=== PATIENT | male | born 1980 | race Two or more races ===

== ENCOUNTER 2020-01-07 08:34 | Day surgery (SDC) | payer BC, MEDICAID, SELFPAY ==
--- NOTE | 2020-01-05 13:57 | HO.ANESPROP2 ---
Documented by User: Carri Jones 01/05/20 13:58 HPI - Anesthesia Eval Consult details Narrative: 39yo M for Colonoscopy [facility] Past Medical History Medical History Hypogonadotropic hypogonadism Social History Social History Alcohol intake: never Smoking Status: Former smoker Advance Directives: No Advance Directives Information Provided: No Advance Directives on File: No Meds Allergies Allergy/AdvReac Type Severity Reaction Status Date / Time amlodipine Allergy Swelling Verified 01/06/20 10:00 oxycodone Allergy Hallucinati Verified 01/06/20 10:00 ons ibuprofen AdvReac Unknown Verified 01/06/20 10:00 Home Medications Medication Instructions Recorded Confirmed Type cholecalciferol (vitamin D3) 2 tab PO DAILY 01/02/20 01/02/20 History testosterone cypionate 0.75 ml IM QWEEK 01/02/20 01/02/20 History Exam Exam Date and Time: January 05, 2020 1357 Height,Weight and Vital Signs: Height 6 ft 1 in Weight 68.946 kg Assessment and Plan Assessment Anesthesia Assessment: Chart Reviewed Documented by User: Juanis Christian 01/07/20 08:56 [facility] Past Medical History Medical History Hypogonadotropic hypogonadism Social History Social History Alcohol intake: never Smoking Status: Former smoker Advance Directives: No Advance Directives Information Provided: No Advance Directives on File: No Meds Allergies Allergy/AdvReac Type Severity Reaction Status Date / Time amlodipine Allergy Swelling Verified 01/06/20 10:00 oxycodone Allergy Hallucinati Verified 01/06/20 10:00 ons ibuprofen AdvReac Unknown Verified 01/06/20 10:00 Home Medications Medication Instructions Recorded Confirmed Type cholecalciferol (vitamin D3) 2 tab PO DAILY 01/02/20 01/02/20 History testosterone cypionate 0.75 ml IM QWEEK 01/02/20 01/02/20 History Exam Airway Mallampati Class: I TM Dist: >3cm Neck ROM: Full Assessment and Plan Assessment Anesthesia Assessment: Anesthesia Plan Discussed and Chart Reviewed Final Anesthetic Review NPO: Yes ASA Class: II Final Preanesthetic Review: No Changes in Pt Med Stat, Meds/Allgs Chart Reviewed, Consent Obtained/Reviewed and Anes Risks/Benef Reviewed Patient Risk: Low Procedure Risk: Low Assessment/Block/Sedation in SS: Assess/Block/Sedation-SS Anesthetic Plan Anesthetic Plan: MAC: Disposition: Standard PACU
[2020-01-07 08:52] VITALS: BP 117/60; PULSE 58; RESP 16; TEMP 36.8; O2SAT 98
--- NOTE | 2020-01-07 08:54 | PC.NURSE ---
patients heart rate dropped to 49 anesthesia aware. asymptomatic. patients states that is his baseline.
--- NOTE | 2020-01-07 09:20 | MHC.SHP ---
Pre-Procedural Eval Section B Chief Complaint: Family Hx of Colon Cancer Details of Present Illness: mother had rectal cancer Relevant Family History (Specify if Yes): Yes Relevant Social History: None Present Medications: see Short Stay Collaborative assessment Medical History: Significant History (hypogonadism) History of Previous Operations: No relevant previous surgery Allergies: Allergies Allergy/AdvReac Type Severity Reaction Status Date / Time No Known Allergies Allergy Verified 01/07/20 09:18 Review of Systems Sugical H&P ROS: Negative: Constitution, Cardiovascular, Respiratory, Neurological, Psychiatric, Hem-Onc, Allergic/Immunologic, Gastrointestinal, Genitourinary, Musculoskeletal, Integumentary, Endocrine and Eyes/Ears/Nose/Throat Exam Surgical H&P Exam: Normal: HEENT, Normal: Heart, Normal: Lungs, Normal: Extremities, Normal: Abdomen, Normal: Skin and Normal: Neurological Plan Diagnosis/Plan: Unchanged Patient has been examined and remains a candidate for the planned procedure
[2020-01-07] MEDS: Lactated Ringers 1,000 ML 100 ML IVCONT (09:21)
--- NOTE | 2020-01-07 09:21 | PM.OP ---
Brief Operative Note Date of procedure: 01/07/20 Pre-op diagnosis: colon cancer screening, high risk, mother had colon cancer in her 30's Post-op diagnosis: same Procedure: see op note Surgeon: Gricel Mercer MD Anesthesia: MAC Estimated blood loss (mL): 0 Condition: stable Disposition: PACU
--- NOTE | 2020-01-07 09:21 | W.PM.OPN ---
Operative Note Operative Note Narrative: Operative Information Procedure Description: Colonoscopy COLONOSCOPY Instrument: Olympus variable stiffness pediatric scope 190L Colonoscopy Monitoring: Vital signs and clinical assessment, continuous EKG monitoring, Pulse oximetry, Carbon Dioxide monitoring and blood pressure monitoring were done throughout the procedure. Colon withdrawal time was 6 minutes. Procedure: The patient was placed in the left lateral decubitis position and pre-procedure medications were administered. After a digital rectal examination of the ano-rectum, the video colonoscope was inserted into the rectum and advanced through the colon to the cecum/TI. The colonoscope was slowly withdrawn in a retrograde panoramic fashion and the colon mucosa was carefully examined including a retroflexed view of the rectum. Findings and interventions are described below. Procedure Difficulty:easy Findings: Terminal Ileum-normal Cecum:normal Ascending Colon: normal Transverse Colon -normal Descending Colon:normal Sigmoid Colon: normal Rectum: Retroflexion with small internal hemorrhoids, grade I Anorectum - normal Colon preparation: Stickney Bowel Preparation Scale Right colon; 3 Transverse colon: 3 Left colon; 3 (0 = Unprepared colon segment with mucosa not seen due to solid stool that cannot be cleared. 1 = Portion of mucosa of the colon segment seen, but other areas of the colon segment not well seen due to staining, residual stool and/or opaque liquid. 2 = Minor amount of residual staining, small fragments of stool and/or opaque liquid, but mucosa of colon segment seen well. 3 = Entire mucosa of colon segment seen well with no residual staining, small fragments of stool or opaque liquid) Impression and Post Procedure Diagnosis: small internal hemorrhoids Plan: High fiber diet leaflet Avoid straining at stool, epsom salts and sitz bath prn, anusol supps or cream prn Repeat Colonoscopy in 5 years due to FH of CRC or earlier if clinically indicated Above findings were reviewed with the patient and relevant handouts were provided if indicated.
[2020-01-07 09:55] VITALS: BP 86/43; PULSE 72; RESP 16; TEMP 36.3; O2SAT 99
[2020-01-07 10:10] VITALS: BP 89/49; PULSE 70; RESP 16; O2SAT 98
[2020-01-07 10:25] VITALS: BP 116/57; PULSE 66; RESP 16; TEMP 36.3; O2SAT 99
--- NOTE | 2020-01-07 10:48 | HO.POSTANES ---
Post Anesthesia Evaluation Post Anesthesia Evaluation Vital Signs: Vital Signs Temp Pulse Resp BP Pulse Ox 01/07/20 10:25 97.3 F 66 16 116/57 L 99 01/07/20 10:10 70 16 89/49 L 98 01/07/20 09:55 97.3 F 72 16 86/43 L 99 01/07/20 08:52 98.3 F 58 16 117/60 98 Anesthesia: General (tiva) Mental Status: Awake Pain Control: Satisfactory Nausea/Vomiting: None Hydration: Adequate Anesthesia-Related Issues: No Anes. Related Issues
== END 2020-01-07 11:04 | disposition home or self-care (01) ==
PROVIDERS: PCP Internal Medicine; Visit Provider Internal Medicine Gastroenterology
PROC: 0DJD8ZZ Inspection of Lower Intestinal Tract, Via Natural or Artificial Opening Endoscopic (ICD-10-PCS; CPT 45378; principal; 2020-01-07 09:30)
DX: Z12.11 Encounter for screening for malignant neoplasm of colon (principal); Z80.0 Family history of malignant neoplasm of digestive organs; K64.0 First degree hemorrhoids; I10 Essential (primary) hypertension; E23.0 Hypopituitarism; E55.9 Vitamin D deficiency, unspecified; Z79.899 Other long term (current) drug therapy; Z87.891 Personal history of nicotine dependence; Z88.8 Allergy status to other drugs, medicaments and biological substances
CPT/HCPCS: 45378

== ENCOUNTER → 2020-01-14 15:02 | Outpatient (BNVA) | payer MEDICAID, BC, SELFPAY | PROVIDERS: PCP Internal Medicine; Referring Provider Internal Medicine; Visit Provider Nurse Practitioner | DX: Z76.89 Persons encountering health services in other specified circumstances (principal) ==

== ENCOUNTER → 2020-01-15 10:07 | Outpatient (BNVA) | payer MEDICAID, BC, SELFPAY | PROVIDERS: PCP Internal Medicine; Referring Provider Internal Medicine; Visit Provider Internal Medicine | DX: Z13.89 Encounter for screening for other disorder (principal) ==

== ENCOUNTER → 2020-05-06 08:55 | Outpatient (BNVA) | payer BC, MEDICAID, SELFPAY | PROVIDERS: PCP Internal Medicine; Visit Provider Internal Medicine ==

== ENCOUNTER → 2020-11-08 08:47 | Outpatient (BNVA) | payer BC, MEDICAID, SELFPAY | PROVIDERS: PCP Internal Medicine; Visit Provider Internal Medicine ==

== ENCOUNTER 2021-02-15 13:27 | Outpatient (REF) | payer BC, MEDICAID, SELFPAY ==
--- NOTE | ~2021-02-15 | US_ITS ---
EXAMINATION: US SOFT TISSUE NECK CLINICAL INFORMATION: Left supraclavicular lymph node COMPARISON: None TECHNIQUE: Ultrasound of the neck soft tissues is performed with high- frequency overton-scale imaging and color Doppler. FINDINGS: LEFT NECK SOFT TISSUES: Single architecturally normal note is present. The node demonstrates normal fatty hilus, normal cortical thickness, and no cystic change or calcification. No abnormal color flow. The lymph node measures 0.8 x 0.5 x 0.3 cm. US/US soft tiss head and/or neck IMPRESSION: Small left supraclavicular lymph node.
== END 2021-02-15 13:28 | disposition home or self-care (01) ==
LOC: HO.US 13:27
PROVIDERS: PCP Internal Medicine; Visit Provider Internal Medicine
DX: L98.9 Disorder of the skin and subcutaneous tissue, unspecified (principal)
CPT/HCPCS: 76536

== ENCOUNTER 2021-10-28 07:46 | Outpatient (REF) | payer BC, MEDICAID, SELFPAY ==
[2021-10-28 11:37] LABS: Hematocrit 45.3 % (42.0-52.0)
[2021-10-28 12:05] LABS: Prostate Specific Antigen 0.32 ng/mL (<0.05-4.0)
[2021-11-05 13:11] LABS: Testosterone, Total 877 ng/dL (250-1100)
== END 2021-10-28 07:47 | disposition home or self-care (01) ==
LOC: HO.HMGCLDS 07:46
PROVIDERS: Visit Provider Urology
DX: Z12.5 Encounter for screening for malignant neoplasm of prostate (principal); E23.0 Hypopituitarism
CPT/HCPCS: 36415; 84153; 84403; 85014

== ENCOUNTER 2022-05-08 08:28 | Outpatient (REF) | payer BC, MEDICAID, SELFPAY ==
[2022-05-08 11:50] LABS: Hematocrit 50.3 % (42.0-52.0); Hemoglobin 16.5 g/dl (14.0-18.0); Mean Corpuscular HGB Conc 32.8 g/dl (31.0-36.0); Mean Corpuscular Hemoglobin 29.5 pg (27.0-33.0); Mean Corpuscular Volume 89.8 fL (80.0-98.0); Mean Platelet Volume 11.1 fL (9.4-12.4); Platelet Count 230 X10*3/uL (160-400); Red Cell Distribution Width 12.7 % (11.0-16.0); White Blood Count 4.4 X10*3/uL (4.8-10.8)
[2022-05-08 12:46] LABS: Prostate Specific Antigen 0.28 ng/mL (<0.05-4.0)
[2022-05-14 13:09] LABS: Testosterone, Total 183 ng/dL (250-1100)
== END 2022-05-08 08:29 | disposition home or self-care (01) ==
LOC: HO.HMGCLDS 08:28
PROVIDERS: PCP Internal Medicine; Visit Provider Urology
DX: E23.0 Hypopituitarism (principal); E29.1 Testicular hypofunction; Z12.5 Encounter for screening for malignant neoplasm of prostate
CPT/HCPCS: 36415; 84153; 84403; 85027

== ENCOUNTER → 2022-05-23 15:09 | Outpatient (BNVA) | payer BC, MEDICAID, SELFPAY | PROVIDERS: PCP Internal Medicine; Visit Provider Urology ==

== ENCOUNTER 2022-08-15 20:13 | Emergency (ER) | payer BC, MEDICAID, SELFPAY ==
--- NOTE | ~2022-08-15 | XR_ITS ---
EXAMINATION: XR HAND, RIGHT CLINICAL INFORMATION: Injury. Pain. COMPARISON: None available. TECHNIQUE: PA, lateral, and oblique views of the right hand. FINDINGS: There is a fracture of the distal shaft of the fifth metacarpal bone. There is radial and volar angulation of the fifth metacarpal head with respect to the more proximal shaft. No other fracture. Joint spaces are normal. There is soft tissue swelling adjacent to the fracture. XR/XR hand RT 2V IMPRESSION: Right fifth metacarpal fracture.
[2022-08-15 20:26] VITALS: BP 136/71; PULSE 69; RESP 18; TEMP 36.6; O2SAT 97; BMI 22.4
--- NOTE | 2022-08-15 20:38 | ED_ITS ---
HPI - Extremity Problem General Chief complaint: Extremity Injury, Upper Stated complaint: R hand injury Time Seen by Provider: 08/15/22 22:20 Source: patient Mode of arrival: ambulatory Limitations: no limitations History of Present Illness HPI Narrative: Patient is a 42-year-old male presents emergency department for evaluation of right hand injury. Reports 2 or 3 days ago he was playing basketball when he jammed his finger into the wall. He had initially a large amount of swelling to the right hand at the ulnar aspect. This has since decreased but is still painful. He decided to seek evaluation today as swelling continued. Denies any numbness or tingling to the hand. Is able to flex and extend all digits of the right hand. Related Data Previous Rx's Medication Instructions Recorded cholecalciferol (vitamin D3) 25 50 mcg PO DAILY 30 days #60 tabs 03/09/20 mcg (1,000 unit) tablet testosterone cypionate 200 mg/mL 100 mg (0.5 mL) IM QWEEK 28 days 05/12/22 intramuscular oil #4 mL Allergies Allergy/AdvReac Type Severity Reaction Status Date / Time No Known Allergies Allergy Verified 05/23/22 15:20 Review of Systems Review of Systems: Yes all other systems are reviewed and are negative PMFSH Past Medical History Attestation statement: The following information was validated with the patient. 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 No acute distress.?Normal affect. Neck: Normal inspection.? Neck supple.?? CVS: Heart sounds normal. Normal heart rate and rhythm.? Pulses normal.?? Respiratory: No respiratory distress.? Lung sounds clear to auscultation bilaterally?? Skin: Skin warm and dry.? Normal skin color.? Extremities: 2+ radial and ulnar +bilaterally. You localized swelling to the distal 5th metacarpal. Neuro: Moves all extremities spontaneously. Sensation intact bilaterally. No focal neuro deficits. Ambulates with normal steady gait. Course Course Course Narrative: 42-year-old male presents for evaluation of right hand pain after a basketball injury when he jammed his finger 2 days ago. Plan for x-ray of the right hand Medical Decision Making Medical Decision Making MDM Narrative: Patient is a 42-year-old male presents emergency department for evaluation of traumatic right hand pain. XR imaging consistent with distal right 5th metacarpal fracture. Extremity is neurovascularly intact distally. Reviewed these results with patient. Patient placed in an ulnar gutter splint, remained neurovascularly intact distally after placement. Discussed pain management including alternation between acetaminophen ibuprofen, patient declines any stronger pain medication at this time. Advised outpatient follow-up with Orthopedics, provided with our contact information. Reviewed worrisome signs and symptoms that would warrant re-evaluation in the emergency department. All questions answered. Differential Diagnosis Differential Diagnoses: The differential diagnosis associated with the presentation includes (Fracture, dislocation, contusion) Independent Interpretation I performed an independent interpretation of an: Plain X-Ray (Have personally interpreted x-ray imaging and agree with radiologist impression) Radiology Impression Discussion of test interpretation with radiology: I have reviewed the radiologist's reading. Radiologist Impression: XR/XR hand RT 2V IMPRESSION: Right fifth metacarpal fracture. Prescription Management I considered prescription management with: Pain Medication Discharge Plan Discharge Clinical Impression: Closed fracture of 5th metacarpal Qualifiers: Encounter type: initial encounter Laterality: right Patient Disposition: Home, Self-Care Instructions: Hand Fracture (ED) Additional Instructions: As discussed, you have a fracture of the 5th metacarpal in your right hand. The splint was positioned, this should remain in place until evaluated by orthop edics. This cannot get wet. You may alternate between Tylenol and ibuprofen as needed for pain. If you develop severe worsening pain, numbness or tingling to the hand/fingers, inability to move the fingers he should have this re- evaluated. Prescriptions: No Action cholecalciferol (vitamin D3) 25 mcg (1,000 unit) tablet 50 mcg PO DAILY 30 Days Qty: 60 11RF testosterone cypionate 200 mg/mL oil 100 mg IM QWEEK 28 Days Qty: 4 5RF Referrals: Wanda Chau PA-C [Physician Streaming Media Specialist] - Brooke Leavitt MD [Primary Care Provider] - Interventions: ED Discharge Assessment Last Done: 08/16/22 00:38 Discharge Date/Time: 08/16/22 00:38
--- NOTE | 2022-08-16 00:32 | MHC.EDTECH ---
This tech placed an Ulna Gutter splint to right wrist, patient tolerated procedure well. Placement checked by Josh SAN at this time,Pt ready for discharge. RN aware
== END 2022-08-16 00:38 | disposition home or self-care (01) ==
PROVIDERS: Emergency Provider Emergency Medicine; PCP Internal Medicine
DX: S62.306A Unspecified fracture of fifth metacarpal bone, right hand, initial encounter for closed fracture (principal); Y93.67 Activity, basketball; Y93.9 Activity, unspecified; Y92.9 Unspecified place or not applicable; Y99.9 Unspecified external cause status
CPT/HCPCS: 29130; 73120; 99282; 99284

== ENCOUNTER 2022-08-23 11:08 | Outpatient (REF) | payer BC, MEDICAID, SELFPAY ==
--- NOTE | ~2022-08-23 | XR_ITS ---
EXAMINATION: XR HAND, RIGHT CLINICAL INFORMATION: Right hand pain. COMPARISON: 08/15/2022. TECHNIQUE: PA, lateral, and oblique views of the right hand. FINDINGS: There is no change in alignment of nondisplaced angulated fracture of the distal 5th metacarpal. Fracture line is evident but there does appear to be some degree of bony union present. There is some periosteal new bone formation. There remains some soft tissue swelling. No dislocation is evident. XR/XR hand RT min 3V IMPRESSION: No change in alignment of healing right 5th metacarpal head fracture.
== END 2022-08-23 11:09 | disposition home or self-care (01) ==
LOC: HO.HOSX 11:08
PROVIDERS: PCP Internal Medicine; Visit Provider Orthopaedic Surgery
DX: S62.306A Unspecified fracture of fifth metacarpal bone, right hand, initial encounter for closed fracture (principal)
CPT/HCPCS: 26600; 73130

== ENCOUNTER 2022-09-08 15:39 | Outpatient (REF) | payer BC, MEDICAID, SELFPAY | END 2022-09-08 15:40 | disposition home or self-care (01) | LOC: HO.HOSX 15:39 | PROVIDERS: Visit Provider Orthopaedic Surgery | DX: Z13.89 Encounter for screening for other disorder (principal) ==

== ENCOUNTER 2022-11-15 06:44 | Outpatient (REF) | payer BC, MEDICAID, SELFPAY ==
[2022-11-15 07:53] LABS: Hemoglobin 16.7 g/dl (14.0-18.0); Mean Corpuscular HGB Conc 33.4 g/dl (31.0-36.0); Mean Corpuscular Hemoglobin 29.8 pg (27.0-33.0); Mean Corpuscular Volume 89.3 fL (80.0-98.0); Mean Platelet Volume 11.2 fL (9.4-12.4); Platelet Count 182 X10*3/uL (160-400); Red Cell Distribution Width 11.9 % (11.0-16.0); White Blood Count 4.7 X10*3/uL (4.8-10.8)
[2022-11-19 14:48] LABS: Testosterone, Total 132 ng/dL (250-1100)
== END 2022-11-15 06:45 | disposition home or self-care (01) ==
LOC: HO.LAB 06:44
PROVIDERS: Visit Provider Urology
DX: Z12.5 Encounter for screening for malignant neoplasm of prostate (principal); E23.0 Hypopituitarism
CPT/HCPCS: 36415; 84153; 84403; 85027

== ENCOUNTER 2022-11-28 14:14 | Outpatient (AMB) | payer BC, MEDICAID, SELFPAY ==
--- NOTE | 2022-11-28 14:20 | MHC.OFFVIS ---
Intake Intake Visit Reasons: 6M CBC/PSA/Testosterone(set) Intake Note: Patient is Present for Follow Up Labs Urology Medication: Testosterone Antibiotic Allergies: None Blood Thinners: None Pharmacy: [facility] Allergies No Known Allergies Allergy (Verified 08/23/22 11:40) HPI HPI Comments History of Present Illness Details Marvin is a pleasant male. He is a patient of Dr. Leavitt. 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 history of probe hormone an anabolic steroid use Off supplementation in 2017 was found to have hypogonadotropic hypogonadism Previously on testosterone Currently uses testosterone supinate which he self administers Gradually reducing dosage to 100 mg weekly subcutaneous Injection - Sunday Laboratory - Sunday Labs: 11/17 877 0.3, 05/18 T 183 50 0.2 (Sun), 11/18 132 (Sun) [facility] Medical History Vitamin D deficiency HTN (hypertension) Hypogonadotropic hypogonadism Surgical History Hx of colonoscopy No pertinent past surgical history Family History Father Heart disease Mother Cancer Social History Household Members: Spouse and Children Alcohol intake: current Alcohol intake frequency: holidays/special occasions only Patient Tobacco Use Status: Never used Tobacco Current occupational status: employed 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 Review of Systems Const Denies chills and Denies fever(s) Card Reports no additional complaints and Denies syncope Resp Denies cough GI Denies abdominal pain and Denies heartburn Reports as per HPI and Denies change in libido Neuro Denies syncope Psych Denies change in libido Endo Denies change in libido Physical Exam Const General: cooperative, healthy appearing, comfortable and no acute distress Orientation/consciousness: patient oriented x3 HEENT Face and sinus: Yes normal facial exam Mouth: moist mucous membranes Neck Neck: Yes normal visual inspection, Yes full ROM and Yes trachea midline Chest Chest palpation & inspection: normal inspection of the chest Resp Effort & Inspection: normal respiratory effort, able to speak in complete sentences and no respiratory distress GI Inspection: Yes normal to inspection Back/Spine/Pelvis Cervical Spine: normal cervical lordosis Thoracic/Lumbar Spine: thoracic and lumbar spine normal to inspection Skin General skin exam: no rashes or lesions noted Neuro General: patient oriented x3, gait normal, tone normal and moves all extremities Extrem General: Yes normal to inspection and Yes capillary refill normal Assessment & Plan Assessment & Plan (1) Erectile dysfunction due to arterial insufficiency: Code(s): N52.01 - Erectile dysfunction due to arterial insufficiency Plan Prescriptions refilled Orders: Orders Testosterone, Total 6 Months 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 No major barriers to patient understanding were identified. An opportunity to ask questions regarding the treatment plan was provided. All questions were answered. The patient expressed understanding and agreement with the above treatment plan. The patient is aware they should contact our office by phone for worsening of their current condition or the appearance of new urologic symptoms. Compliance is encouraged with any medications and followup testing that is ordered. It is a privilege to participate in the urologic care of your patient. If you have any questions or concerns regarding treatment for the above conditions, or other urologic issues, please do not hesitate to contact me. The office telephone contact is [phone]. This note is constructed using voice recognition software. While every effort has been made to ensure accuracy concrete layer errors may have been included. Yours sincerely, Dr Marciano Soliman MD, [facility] - Urology Providers of Expert, Compassionate Care for the Genitourinary System Coding Level of Care Code Est Pt Level 3 (41525) Diagnoses Erectile dysfunction due to arterial insufficiency N52.01
== END 2022-11-28 14:46 | disposition home or self-care (01) ==
PROVIDERS: PCP Internal Medicine; Visit Provider Urology
DX: N52.01 Erectile dysfunction due to arterial insufficiency (principal)
CPT/HCPCS: 99213

== ENCOUNTER → 2022-11-28 14:14 | Outpatient (BNVA) | payer BC, MEDICAID, SELFPAY | PROVIDERS: Visit Provider Urology ==

== ENCOUNTER 2023-05-18 08:58 | Outpatient (REF) | payer BC, MEDICAID, SELFPAY ==
[2023-05-18 10:36] LABS: Hematocrit 52.4 % (42.0-52.0); Hemoglobin 17.3 g/dl (14.0-18.0); Mean Corpuscular Hemoglobin 29.9 pg (27.0-33.0); Mean Corpuscular Volume 90.5 fL (80.0-98.0); Mean Platelet Volume 10.3 fL (9.4-12.4); Platelet Count 255 X10*3/uL (160-400); Red Blood Count 5.79 X10*6/uL (4.60-5.80); White Blood Count 5.1 X10*3/uL (4.8-10.8)
[2023-05-18 11:15] LABS: Prostate Specific Antigen 0.48 ng/mL (<0.05-4.0)
[2023-05-24 11:43] LABS: Testosterone, Total 739 ng/dL (250-1100)
== END 2023-05-18 08:59 | disposition home or self-care (01) ==
LOC: HO.HMGCLDS 08:58
PROVIDERS: PCP Registered Nurse; Visit Provider Urology
DX: Z12.5 Encounter for screening for malignant neoplasm of prostate (principal); E23.0 Hypopituitarism
CPT/HCPCS: 36415; 84153; 84403; 85027

== ENCOUNTER 2023-05-30 13:40 | Outpatient (AMB) | payer BC, MEDICAID, SELFPAY ==
--- NOTE | 2023-05-30 13:40 | A.OFFVIS_ITS ---
Intake Intake Visit Reasons: 6M PSA/Testo(Pending)Confirmed Intake Note: Patient presents today for a telehealth follow up on PSA/Testo Meds- Tadalafil, Testosterone Cypionate Allergies to Antibiotic- No Known Allergies Blood Thinner- None Ship'S Surveyor Required: No Accompanied by: Self / Same As Patient Allergies No Known Allergies Allergy (Verified 05/30/23 13:42) Medication List - Last Reconciled 05/30/23 by Marciano Soliman MD cholecalciferol (vitamin D3) 50 mcg (2 x 25 mcg (1,000 unit)) PO DAILY 30 days tadalafil 10 mg PO ONCE PRN 30 days testosterone cypionate 100 mg (0.5 mL) IM QWEEK 28 days HPI HPI Comments History of Present Illness Details Marvin is a pleasant male. He is a patient of Dr. Leavitt. 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 steroid use Off supplementation in 2017 was found to have hypogonadotropic hypogonadism Previously on testosterone Currently uses testosterone supinate which he self administers Gradually reducing dosage to 100 mg weekly subcutaneous Injection - Sunday Laboratory - Sunday Labs: 11/17 877 0.3, 05/18 T 183 50 0.2 (Sun), 11/18 132 (Sun), 05/19 T 740 0.4 PFSH Medical History Vitamin D deficiency HTN (hypertension) Hypogonadotropic hypogonadism Surgical History Hx of colonoscopy No pertinent past surgical history Family History Father Heart disease Mother Cancer Social History Household Members: Spouse and Children Alcohol intake: current Alcohol intake frequency: holidays/special occasions only Patient Tobacco Use Status: Never used Tobacco Current occupational status: employed 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 Review of Systems Const All systems reviewed & are unremarkable except as noted in HPI and below Reports no additional complaints Resp Reports no additional complaints GI Reports no additional complaints Reports as per HPI Musc Reports no additional complaints Physical Exam Telemedicine evaluation Appropriate responses Regular breathing rate and rhythm HEENT Head: Yes normal to inspection Ears: hearing grossly normal bilaterally Eyes General: appearance normal, both eyes and all related structures Neck Neck: Yes normal visual inspection Chest Chest palpation & inspection: normal inspection of the chest Resp Effort & Inspection: normal respiratory effort and able to speak in complete sentences Assessment & Plan Assessment & Plan (1) Hypogonadotropic hypogonadism: Code(s): 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 No major barriers to patient understanding were identified. An opportunity to ask questions regarding the treatment plan was provided. All questions were answered. The patient expressed understanding and agreement with the above treatment plan. The patient is aware they should contact our office by phone for worsening of their current condition or the appearance of new urologic symptoms. Compliance is encouraged with any medications and followup testing that is ordered. It is a privilege to participate in the urologic care of your patient. If you have any questions or concerns regarding treatment for the above conditions, or other urologic issues, please do not hesitate to contact me. The office telephone contact is [phone]. This note is constructed using voice recognition software. While every effort has been made to ensure accuracy dot compliance coordinator errors may have been included. Yours sincerely, Dr Marciano Soliman MD, [facility] - Urology Providers of Expert, Compassionate Care for the Genitourinary System Telehealth Telehealth Location of provider rendering services: practice address Location of patient: address on file Patient Identification confirmed using: Name, : Yes Telehealth method: video Patient verbally consented to treatment: Yes Patient verbally consented to billing insurance company: Yes Patient informed of any privacy concerns related to visit: Yes Coding Level of Care Code Tele Est Pt Level 4 (54591) Diagnoses Hypogonadotropic hypogonadism E23.0 Erectile dysfunction due to arterial insufficiency N52.01
== END 2023-05-30 15:56 | disposition home or self-care (01) ==
LOC: HO.HUSH 13:40
PROVIDERS: PCP Registered Nurse; Visit Provider Urology
DX: E23.0 Hypopituitarism (principal); N52.01 Erectile dysfunction due to arterial insufficiency
CPT/HCPCS: 99213

== ENCOUNTER → 2023-05-30 13:40 | Outpatient (BNVA) | payer BC, MEDICAID, SELFPAY | PROVIDERS: PCP Registered Nurse; Visit Provider Urology ==

== ENCOUNTER 2023-11-13 10:44 | Outpatient (REF) | payer OTHER, MEDICAID, SELFPAY ==
[2023-11-13 11:23] LABS: Hematocrit 47.8 % (42.0-52.0); Hemoglobin 16.3 g/dl (14.0-18.0); Mean Corpuscular HGB Conc 34.1 g/dl (31.0-36.0); Mean Corpuscular Hemoglobin 31.3 pg (27.0-33.0); Mean Corpuscular Volume 91.7 fL (80.0-98.0); Mean Platelet Volume 10.3 fL (9.4-12.4); Platelet Count 225 X10*3/uL (160-400); Red Blood Count 5.21 X10*6/uL (4.60-5.80); Red Cell Distribution Width 12.2 % (11.0-16.0); White Blood Count 4.3 X10*3/uL (4.8-10.8)
[2023-11-13 12:04] LABS: Prostate Specific Antigen 0.44 ng/mL (<0.05-4.0)
[2023-11-17 15:54] LABS: Testosterone, Total 491 ng/dL (250-1100)
== END 2023-11-13 10:45 | disposition home or self-care (01) ==
LOC: HO.LAB 10:44
PROVIDERS: PCP Registered Nurse; Visit Provider Urology
DX: E23.0 Hypopituitarism (principal); Z12.5 Encounter for screening for malignant neoplasm of prostate
CPT/HCPCS: 36415; 84153; 84403; 85027

== ENCOUNTER 2024-01-09 10:38 | Outpatient (AMB) | payer OTHER, MEDICAID, SELFPAY ==
--- NOTE | 2024-01-09 10:50 | MHC.OFFVIS ---
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 He is a patient of Dr. Leavitt. 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 Previously on testosterone Currently uses testosterone supinate which he self administers Gradually reducing dosage to 100 mg weekly subcutaneous Injection - Sunday Laboratory - Sunday Labs: 11/17 877 0.3, 05/18 T 183 50 0.2 (Sun), 11/18 132 (Sun), 05/19 T 740 0.4, 11/19 T 491 0.44 PFSH Medical History Vitamin D deficiency HTN (hypertension) Hypogonadotropic hypogonadism Surgical History Hx of colonoscopy No pertinent past surgical history Family History Father Heart disease Mother Cancer Social History Household Members: Spouse and Children Alcohol intake: current Alcohol intake frequency: holidays/special occasions only Patient Tobacco Use Status: Never used Tobacco Current occupational status: employed 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 Review of Systems Const Denies chills and Denies fever(s) Card Reports no additional complaints and Denies syncope Resp Denies cough GI Denies abdominal pain and Denies heartburn Reports as per HPI and Denies change in libido Neuro Denies syncope Psych Denies change in libido Endo Denies change in libido Physical Exam Const General: cooperative, healthy appearing, comfortable and no acute distress Orientation/consciousness: patient oriented x3 HEENT Face and sinus: Yes normal facial exam Mouth: moist mucous membranes Neck Neck: Yes normal visual inspection, Yes full ROM and Yes trachea midline Chest Chest palpation & inspection: normal inspection of the chest Resp Effort & Inspection: normal respiratory effort, able to speak in complete sentences and no respiratory distress GI Inspection: Yes normal to inspection Back/Spine/Pelvis Cervical Spine: normal cervical lordosis Thoracic/Lumbar Spine: thoracic and lumbar spine normal to inspection Skin General skin exam: no rashes or lesions noted Neuro General: patient oriented x3, gait normal, tone normal and moves all extremities Extrem General: Yes normal to inspection and Yes capillary refill normal Assessment & Plan Assessment & Plan (1) Erectile dysfunction due to arterial insufficiency: Code(s): N52.01 - Erectile dysfunction due to arterial insufficiency Category: Medical (2) Hypogonadotropic hypogonadism: Code(s): E23.0 - Hypopituitarism Category: Medical Plan Six-month follow-up lab work tele Patient Instructions: Imaging studies, laboratory and physical exam results were discussed and reviewed in detail. No major barriers to patient understanding were identified. An opportunity to ask questions regarding the treatment plan was provided. All questions were answered. The patient expressed understanding and agreement with the above treatment plan. The patient is aware they should contact our office by phone for worsening of their current condition or the appearance of new urologic symptoms. Compliance is encouraged with any medications and followup testing that is ordered. It is a privilege to participate in the urologic care of your patient. If you have any questions or concerns regarding treatment for the above conditions, or other urologic issues, please do not hesitate to contact me. The office telephone contact is [phone]. This note is constructed using voice recognition software. While every effort has been made to ensure accuracy family caseworker errors may have been included. Yours sincerely, Dr Marciano Soliman MD, MICKEY [facility] - Urology Providers of Expert, Compassionate Care for the Genitourinary System Coding Level of Care Code Est Pt Level 3 (04315) Diagnoses Erectile dysfunction due to arterial insufficiency N52.01 Hypogonadotropic hypogonadism E23.0
== END 2024-01-09 11:27 | disposition home or self-care (01) ==
PROVIDERS: PCP Registered Nurse; Visit Provider Urology
DX: N52.01 Erectile dysfunction due to arterial insufficiency (principal); E23.0 Hypopituitarism
CPT/HCPCS: 99213

== ENCOUNTER → 2024-01-09 10:38 | Outpatient (BNVA) | payer OTHER, MEDICAID, SELFPAY | PROVIDERS: PCP Registered Nurse; Visit Provider Urology ==

== ENCOUNTER 2024-07-02 09:17 | Outpatient (REF) | payer OTHER, MEDICAID, SELFPAY ==
--- OUTSIDE RECORDS SUMMARY | 2024-07-02 09:56 | XMS_ITS | Clinical Summary ---
Author Organization [employer] Address [address] [place] [address] Care Team Providers Care Knitter Operator Name Role Phone Ruthy Vickers CABIN MAN Primary Care Provider [phone] Allergies No known active allergies Medications tadalafil (Cialis) 10 MG tablet TAKE 1 TABLET BY MOUTH ONCE NEEDED FOR SEXUAL ACTIVITY 05/22/19 24 Active testosterone cypionate (Depo-Testoste shena) 200 MG/ML injection INJECT 0.5 ML (100 MG) INTRAMUSCULARLY EVERY WEEK Active acetaminophen (Tylenol 8 Hour) 650 MG ER tablet Take 1 tablet (650 mg) by mouth every 8 (eight) hours if needed for mild pain. Do not crush, chew, or split. 30 tablet 06/06/19 25 Active ibuprofen 600 MG tablet Take 1 tablet (600 mg) by mouth 3 times daily. 30 tablet 06/06/19 25 Active amoxicillin (Amoxil) 500 MG capsule Take 1 capsule (500 mg) by mouth every 8 (eight) hours for 7 days. 21 capsule 06/06/19 25 025 Active Problems Problem Noted Date Diagnosed Date Pain, dental 06/05/2024 Dental abscess 03/13/2023 Severe dental caries 03/13/2023 Vitamin D deficiency 11/28/2022 Hypogonadotropic hypogonadism 11/28/2022 HTN (hypertension) 11/28/2022 Family history of colon cancer 11/28/2022 Closed fracture of 5th metacarpal 11/28/2022 Elevated blood-pressure read ing without diagnosis of hypertension 06/08/2016 Decreased testosterone level 05/31/2015 Encounters Date Type Department Care Team Description 06/05/2024 1:00 PM EDT Office Visit [facility] [address] [place] [address] Josh Garcia DDS Severe dental caries (Primary Dx); Pain, dental from Last 3 Months Immunizations Name Administration Dates Next Due Tdap 10/07/2020 Social History Tobacco Use Types Packs/Day Years Used Date Smoking Tobacco: Never Smokeless Tobacco: Never Tobacco Cessation:Counseling Given: Not Answered Alcohol Use Standard Drinks/Week Comments Never 0 (1 standard drink = 0.6 oz pur e alcohol) Alcohol Answer Date Recorded Frequency of Alcohol Consumption Not on file 11/29/2022 Average Number of Drinks Not on file 023 Frequency of Binge Drinking Not on file 05/2022 Score 0 11/29/2022 Depression Answer Date Recorded Patient Health Questionnaire-9 Score 0 03/15/2022 Housing Stability Answer Date Recorded What is your housing situation today? I have karina bolton 12/10/[address] you li ve. Do you have problems with any of the following? None of the above 12/10/2022 Food Insecurity Answer Date Recorded Within the past 12 months, y ou worried that your food would run out before you got money to buy more: Never True 12/10/2022 Within the past 12 months,th e food you bought just didn't last and you didn't have enough money to get more: Never True Transportation Answer Date Recorded In the past 12 months, has l ack of transportation kept you from medical appts, meetings, work or from getting things needed for daily living? No 12/10/2022 Utilities Answer Date Recorded In the past 12 months, has t he electric, gas, oil or water company threatened to shut off services in your home? No 12/10/2022 Depression Answer Date Recorded Patient Health Questionnaire-2 Score 0 03/15/2022 Sex and Gender Information Value Date Recorded Sex Assigned at Male 12/26/2021 10:29 AM EDT Legal Sex Male 10:29 AM EDT Gender Identity Male 12/26/2021 10:29 AM EDT Sexual Orientation Straight 12/26/2021 10 :29 AM EDT Last Filed Vital Signs Vital Sign Reading Time Taken Comments Blood Pressure 120/78 06/05/2024 1:11 PM EDT Pulse 65 06/05/2024 1:11 PM EDT Temperature 36.5 ??C (97.7 ??F) 06/07/2023 2:41 PM ED T Respiratory Rate 20 06/07/2023 2:41 PM EDT Oxygen Saturation 96% 06/07/2023 2:41 PM EDT Inhaled Oxygen Concentration - - Weight 77.4 kg (170 lb 9.6 oz) 06/07/2023 2:41 P M EDT Height 185.4 cm (6' 1 ) 06/07/2023 2:41 PM EDT Body Mass Index 22.51 06/07/2023 2:41 PM EDT Plan of Treatment Health Maintenance Due Date Last Done Comments CT Colonography 1979 Colonoscopy 1979 Colorectal Cancer Screening 1979 Dental Prophylaxis 1979 FIT DNA/Cologuard 1979 FIT 1979 FOBT 1979 Lipid Panel 1979 Sigmoidoscopy 1979 Alcohol/Substance Use Screening 1991 Family Planning (PISQ) 1994 Hepatitis B Vaccines (1 of 3 - 19+ 3-dose series) 1998 Dental Oral Exam 02/20/2016 08/20/2015 Dental X-Ray: Bitewings 08/20/2016 08/20/2015 Depression Screening 03/15/2023 03/15/2022, 03/15/19 23 COVID-19 Vaccine ( season) 2023 01/28/2022, 01/29/2021, 07/10/2020, Additional history exists Influenza Vaccine (#1) 2023 SDOH Screening 11/30/2023 11/29/2022 Tobacco Screening 06/05/2025 06/05/2024 Dental X-Ray: Full Mouth 03/14/2026 03/13/2023, 07/28 Zoster Vaccines (1 of 2) 2029 DTaP/Tdap/Td Vaccines (2 - Td or Tdap) 10/07/2030 10/07/2020 RSV Patients and Patients Aged 60 years or older (1 - 1-dose 75+ series) 2054 HIV Screening Completed 12/29/2019 Hepatitis C Screening Completed 12/29/2019 HIB Vaccines Aged Out No longer eligi ble based on patient's age to complete this topic HPV Vaccines Aged Out No longer eligi ble based on patient's age to complete this topic Hepatitis A Vaccines Aged Out No long er eligible based on patient's age to complete this topic IPV Vaccines Aged Out No longer eligi ble based on patient's age to complete this topic Meningococcal Vaccine Aged Out No heriberto jolynn eligible based on patient's age to complete this topic Pneumococcal Vaccine: Pediatrics (0 to 5 Years) and At-Risk Patients (6 to 49) Years) Aged Out No longer eligible based on patient's age to complete this topic RSV under 20 months Aged Out No longe r eligible based on patient's age to complete this topic Rotavirus Vaccines Aged Out No longer eligible based on patient's age to complete this topic Procedures Procedure Name Priority Date/Time Associated Diagnosis Comments CASE PRESENTATION, DETAILED AND EXTENSIVE TREATMENT PLANNING Routine 06/05/2024 1:00 PM EDT LIMITED ORAL EVALUATION - PROBLEM FOCUSED Routine 06/05/2024 1:00 PM EDT INTRAORAL - PERIAPICAL FIRST RADIOGRAPHIC IMAGE Routine 06/05/2024 1:00 PM EDT PANORAMIC RADIOGRAPHIC IMAGE Routine 03/13/2023 11:00 AM EST ZZZ HISTORICAL HEPATITIS PANEL, ACUTE W/REFLEX TO CONFIRMATION Routine 12/29/2019 11:09 AM EST HIV 1/2 ANTIGEN/ANTIBODY, FOURTH GENERATION W/RFL Routine 12/29/2019 11:09 AM EST INTRAORAL - COMPLETE SERIES OF RADIOGRAPHIC IMAGES Routine 08/20/2015 12:00 AM EDT COMPREHENSIVE ORAL EVALUATION - NEW OR ESTABLISHED PATIENT Routine 08/20/2015 12:00 AM EDT from Last 3 Months or Most Recently Relevant to Health Maintenance Results * HEPATITIS PANEL, ACUTE W/REFLEX TO CONFIRMATION (12/29/2019 11:09 AM EST) HEPATITIS C ANTIBODY NON-REACT SAIRA NON-REACT SAIRA [facility] INDEX 0.01 <1.00 [facility] Comment: ?? HCV antibody was non-reactive. There is no laboratory ?? evidence of HCV infection. ?? In most cases, no further action is required. However, if recent HCV exposure is suspected, a test for HCV RNA (test code 58513) is suggested. ?? For additional information please refer to http://[employer]/faq/JBQ79o7 (This link is being provided for informational/ educational purposes only.) ?? HEPATITIS B SURFACE ANTIGEN NON-REACT SAIRA NON-[facility]ACT [facility] HEPATITIS B CORE ANTIBODY (IGM) NON-REACT SAIRA NON-REACT [facility] HEPATITIS B CORE ANTIBODY (IGM) NON-REACT SAIRA NON-REACT [facility] HEPATITIS A IGM NON-REACT SAIRA NON-REACT [facility] Comment: ?? For additional information, please refer to ?? http://[employer]/faq/EVO501 ?? (This link is being provided for informational/ educational purposes only.) ?? HEPATITIS B CORE ANTIBODY (IGM) NON-REACT SAIRA NON-REACT [facility] HEPATITIS A IGM NON-REACT SAIRA NON-REACT [facility] Comment: ?? For additional information, please refer to ?? http://[employer]/faq/HYZ807 ?? (This link is being provided for informational/ educational purposes only.) ?? HEPATITIS C ANTIBODY NON-REACT SAIRA NON-REACT [facility] INDEX 0.01 <1.00 [facility] Comment: ?? HCV antibody was non-reactive. There is no laboratory ?? evidence of HCV infection. ?? In most cases, no further action is required. However, if recent HCV exposure is suspected, a test for HCV RNA (test code 78094) is suggested. ?? For additional information please refer to http://[employer]/faq/SMZ32v2 (This link is being provided for informational/ educational purposes only.) ?? HEPATITIS C ANTIBODY NON-REACT SAIRA NON-REACT [facility] INDEX 0.01 <1.00 [facility] Comment: ?? HCV antibody was non-reactive. There is no laboratory ?? evidence of HCV infection. ?? In most cases, no further action is required. However, if recent HCV exposure is suspected, a test for HCV RNA (test code 19201) is suggested. ?? For additional information please refer to http://[employer]/faq/YGW14y9 (This link is being provided for informational/ educational purposes only.) ?? HEPATITIS B CORE ANTIBODY (IGM) NON-REACT SAIRA NON-REACT SAIRA [facility] HEPATITIS A IGM NON-REACT SAIRA NON-REACT SAIRA [facility] Comment: ?? For additional information, please refer to ?? http://[employer]/faq/XDT130 ?? (This link is being provided for informational/ educational purposes only.) ?? HEPATITIS B SURFACE ANTIGEN NON-REACT SAIRA NON-REACT [facility] HEPATITIS B SURFACE ANTIGEN NON-REACT SAIRA NON-REACT SAIRA [facility] HEPATITIS C ANTIBODY NON-REACT SAIRA NON-REACT SAIRA [facility] INDEX 0.01 <1.00 [facility] Comment: ?? HCV antibody was non-reactive. There is no laboratory ?? evidence of HCV infection. ?? In most cases, no further action is required. However, if recent HCV exposure is suspected, a test for HCV RNA (test code 53535) is suggested. ?? For additional information please refer to http://[employer]/faq/JCA97e5 (This link is being provided for informational/ educational purposes only.) ?? HEPATITIS A IGM NON-REACT SAIRA NON-REACT SAIRA [facility] Comment: ?? For additional information, please refer to ?? http://[employer]/faq/AZF751 ?? (This link is being provided for informational/ educational purposes only.) ?? HEPATITIS B SURFACE ANTIGEN NON-REACT SAIRA NON-REACT SAIRA [facility] 12/29/2019 11:0 9 AM EST us Osman Blake CABIN MAN HISTORICAL/NON ORDERA BLE LABS Final Result [facility] [address] * HIV 1/2 ANTIGEN/ANTIBODY,FOURTH GENERATION W/RFL (12/29/2019 11:09 AM EST) HIV-1/2 ANTIGEN AND ANTIBODIES, 4TH GENERATION W/ REFLEX NON-REACT SAIRA NON-REACT SAIRA [facility] Comment: HIV-1 antigen and HIV-1/HIV-2 antibodies were not detected. There is no laboratory evidence of HIV infection. ?? PLEASE NOTE: This information has been disclosed to you from records whose confidentiality may be protected by state law. ??If your state requires such protection, then the state law prohibits you from making any further disclosure of the information without the specific written consent of the person to whom it pertains, or as otherwise permitted by law. A general authorization for the release of medical or other information is NOT sufficient for this purpose. ? For additional information please refer to http://[employer]/faq/ZQE248 (This link is being provided for informational/ educational purposes only.) ? The performance of this assay has not been clinically validated in patients less than 2 years old. ?? HIV-1/2 ANTIGEN AND ANTIBODIES, 4TH GENERATION W/ REFLEX NON-REACT SAIRA NON-REACT SAIRA [facility] Comment: HIV-1 antigen and HIV-1/HIV-2 antibodies were not detected. There is no laboratory evidence of HIV infection. ?? PLEASE NOTE: This information has been disclosed to you from records whose confidentiality may be protected by state law. ??If your state requires such protection, then the state law prohibits you from making any further disclosure of the information without the specific written consent of the person to whom it pertains, or as otherwise permitted by law. A general authorization for the release of medical or other information is NOT sufficient for this purpose. ? For additional information please refer to http://[employer]/faq/NUI572 (This link is being provided for informational/ educational purposes only.) ? The performance of this assay has not been clinically validated in patients less than 2 years old. ?? HIV-1/2 ANTIGEN AND ANTIBODIES, 4TH GENERATION W/ REFLEX NON-REACT SAIRA NON-REACT [facility] Comment: HIV-1 antigen and HIV-1/HIV-2 antibodies were not detected. There is no laboratory evidence of HIV infection. ?? PLEASE NOTE: This information has been disclosed to you from records whose confidentiality may be protected by state law. ??If your state requires such protection, then the state law prohibits you from making any further disclosure of the information without the specific written consent of the person to whom it pertains, or as otherwise permitted by law. A general authorization for the release of medical or other information is NOT sufficient for this purpose. ? For additional information please refer to http://[employer]/faq/PUE352 (This link is being provided for informational/ educational purposes only.) ? The performance of this assay has not been clinically validated in patients less than 2 years old. ?? HIV-1/2 ANTIGEN AND ANTIBODIES, 4TH GENERATION W/ REFLEX NON-REACT SAIRA NON-REACT SAIRA [facility] Comment: HIV-1 antigen and HIV-1/HIV-2 antibodies were not detected. There is no laboratory evidence of HIV infection. ?? PLEASE NOTE: This information has been disclosed to you from records whose confidentiality may be protected by state law. ??If your state requires such protection, then the state law prohibits you from making any further disclosure of the information without the specific written consent of the person to whom it pertains, or as otherwise permitted by law. A general authorization for the release of medical or other information is NOT sufficient for this purpose. ? For additional information please refer to http://[employer]/faq/UBZ110 (This link is being provided for informational/ educational purposes only.) ? The performance of this assay has not been clinically validated in patients less than 2 years old. ?? 12/29/2019 11:0 9 AM EST us Osman Blake CABIN MAN LAB BLOOD ORDERABLES Final Result [facility] [address] from Last 3 Months or Most Recently Relevant to Health Maintenance Insurance [facility] C[facility] HMO [facility] STANDARD [address] [place] [address] [place] STAND ADULT [address] [place] [address] * Guarantor: Marvin Castillo Account Type Relation to Patient Date of Phone Billing Address Personal/Family Self [address] [address] [place] [address] [employer] Care Teams Knitter Operator Relationship Specialty Start Date End Date Ruthy Vickers FNP [address] [place] [id number] PCP - General Family Medicine 11/29/22
[2024-07-02 10:21] LABS: Prostate Specific Antigen 0.48 ng/mL (<0.05-4.0)
[2024-07-06 16:14] LABS: Testosterone, Total 637 ng/dL (250-1100)
== END 2024-07-02 09:18 | disposition home or self-care (01) ==
LOC: HO.LAB 09:17
PROVIDERS: PCP Registered Nurse; Visit Provider Urology
DX: Z12.5 Encounter for screening for malignant neoplasm of prostate (principal); N52.01 Erectile dysfunction due to arterial insufficiency
CPT/HCPCS: 36415; 84153; 84403

== ENCOUNTER 2024-07-08 11:37 | Outpatient (AMB) | payer OTHER, MEDICAID, SELFPAY ==
--- NOTE | 2024-07-08 11:37 | MHC.OFFVIS ---
Intake Visit Reasons: follow ups labs/testo Intake Note: pt here today for:Fu on Labs/Testo uro meds:None allergies:None blood thinner:None Turkish Rubber Required: No Allergies No Known Allergies Allergy (Verified 07/08/24 11:39) HPI Comments Details: Marvin is a pleasant male. He is a patient of Dr. Leavitt. 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 Off supplementation in 2016 was found to have hypogonadotropic hypogonadism Previously on testosterone Currently uses testosterone supinate which he self administers Gradually reducing dosage to 100 mg weekly subcutaneous Injection - Sunday Laboratory - Sunday Labs: 11/17 877 0.3, 05/18 T 183 50 0.2 (Sun), 11/18 132 (Sun), 05/19 T 740 0.4, 11/19 T 491 0.44, 07/20 640 0.5 PFSH Medical History Vitamin D deficiency HTN (hypertension) Hypogonadotropic hypogonadism Surgical History Hx of colonoscopy No pertinent past surgical history Family History Father Heart disease Mother Cancer Social History Household Members: Spouse and Children Alcohol intake: current Alcohol intake frequency: holidays/special occasions only Patient Tobacco Use Status: Never used Tobacco Current occupational status: employed 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 Review of Systems Const All systems reviewed & are unremarkable except as noted in HPI and below Reports no additional complaints Resp Reports no additional complaints GI Reports no additional complaints Reports as per HPI Musc Reports no additional complaints Physical Exam Telemedicine evaluation Appropriate responses Regular breathing rate and rhythm HEENT Head: Yes normal to inspection Ears: hearing grossly normal bilaterally Eyes General: appearance normal, both eyes and all related structures Neck Neck: Yes normal visual inspection Chest Chest palpation & inspection: normal inspection of the chest Resp Effort & Inspection: normal respiratory effort and able to speak in complete sentences Telehealth Telehealth Telehealth Platform: P[employer] Location of provider rendering services: practice address Location of patient: address on file Patient Identification confirmed using: Name, : Yes Telehealth method: video Patient verbally consented to treatment: Yes Patient verbally consented to billing insurance company: Yes Patient informed of any privacy concerns related to visit: Yes Minutes spent on Phone/Video with Pt.: 15 Assessment & Plan Assessment & Plan (1) Erectile dysfunction due to arterial insufficiency: Code(s): N52.01 - Erectile dysfunction due to arterial insufficiency Category: Medical (2) Hypogonadotropic hypogonadism: Code(s): E23.0 - Hypopituitarism Category: Medical Plan Six-month follow-up lab work office Orders: Orders Prostate Specific Antigen 6 Months E23.0 - Hypopituitarism Testosterone, Total 6 Months E23.0 - Hypopituitarism Complete Blood Count no Diff 6 Months E23.0 - Hypopituitarism Medications: Refilled tadalafil as needed 10 mg PO ONCE PRN 30 tabs 4RF sexual activity 30 days N52.9 - Male erectile dysfunction, unspecified testosterone cypionate 100 mg (0.5 mL) IM QWEEK 4 mL 5RF 28 days E23.0 - Hypopituitarism Patient Instructions: This note is constructed using voice recognition software. While every effort has been made to ensure accuracy jumpbasting canvas baster errors may have been included. Imaging studies, laboratory and physical exam results were discussed and reviewed in detail. No major barriers to patient understanding were identified. An opportunity to ask questions regarding the treatment plan was provided. All questions were answered. The patient expressed understanding and agreement with the above treatment plan. The patient is aware they should contact our office by phone for worsening of their current condition or the appearance of new urologic symptoms. Compliance is encouraged with any medications and followup testing that is ordered. It is a privilege to participate in the urologic care of your patient. If you have any questions or concerns regarding treatment for the above conditions, or other urologic issues, please do not hesitate to contact me. The office telephone contact is [phone]. Sincerely, Dr Marciano Soliman MD, [facility] - Urology Compassionate Specialist Care for the Genitourinary System Coding Level of Care Code Tele Est Pt Level 3 (04897) Complex EM visit Add On G2211 Diagnoses Erectile dysfunction due to arterial insufficiency N52.01 Hypogonadotropic hypogonadism E23.0
== END 2024-07-08 13:19 | disposition home or self-care (01) ==
LOC: HO.HUSH 11:37
PROVIDERS: PCP Registered Nurse; Visit Provider Urology
DX: N52.01 Erectile dysfunction due to arterial insufficiency (principal); E23.0 Hypopituitarism
CPT/HCPCS: 99213; G2211

== ENCOUNTER → 2024-07-08 11:37 | Outpatient (BNVA) | payer OTHER, MEDICAID, SELFPAY | PROVIDERS: PCP Registered Nurse; Visit Provider Urology ==

== ENCOUNTER 2024-12-17 13:15 | Outpatient (REF) | payer OTHER, MEDICAID, SELFPAY ==
[2024-12-17 13:42] LABS: Hematocrit 44.1 % (42.0-52.0); Hemoglobin 15.2 g/dl (14.0-18.0); Mean Corpuscular HGB Conc 34.5 g/dl (31.0-36.0); Mean Corpuscular Hemoglobin 30.0 pg (27.0-33.0); Mean Corpuscular Volume 87.0 fL (80.0-98.0); NRBC Abs Auto 0.000 X10*3/uL (0.0-0.012); NRBC Pct Auto 0.0 /100WBC (0.0-0.2); Platelet Count 203 X10*3/uL (160-400); Red Blood Count 5.07 X10*6/uL (4.60-5.80); White Blood Count 6.6 X10*3/uL (4.8-10.8)
[2024-12-17 14:29] LABS: Prostate Specific Antigen 0.42 ng/mL (<0.05-4.0)
--- OUTSIDE RECORDS SUMMARY | 2024-12-17 18:42 | XMS_ITS | Clinical Summary ---
Author Organization [employer] Address [address] [place] [address] [address] [place] [address] Care Team Providers Care Loading Rack Supervisor Name Role Phone Ruthy Vickers [facility] Primary Care Provider [phone] Allergies No known active allergies Medications tadalafil [...] times daily. 30 tablet 06/06/19 25 Active Active Problems Problem Noted Date Diagnosed Date Pain, dental 06/05/2024 Dental abscess 03/13/2023 Severe dental caries 03/13/2023 Vitamin D deficiency 11/28/2022 Hypogonadotropic hypogonadism 11/28/2022 HTN (hypertension) 11/28/2022 Family history of colon cancer 11/28/2022 Closed fracture of 5th metacarpal 11/28/2022 Elevated blood-pressure read ing without diagnosis of hypertension 06/08/2016 Decreased testosterone level 05/31/2015 Immunizations Immunization Administration Dates Next Due Tdap 10/07/2020 Social [...] 65 06/05/2024 1:11 PM EDT Temperature 36.5 C (97.7 F) 06/07/2023 2:41 PM EDT Respiratory Rate 20 06/07/2023 2:41 PM EDT Oxygen Saturation 96% 06/07/2023 2:41 PM EDT Inhaled Oxygen Concentration - - Weight 77.4 kg (170 lb 9.6 oz) 06/07/2023 2:41 P M EDT Height 185.4 cm (6' 1 ) 06/07/2023 2:41 PM EDT Body Mass Index 22.51 06/07/2023 2:41 PM EDT Plan of Treatment Upcoming Encounters Date Type Department Care Team (Late st Contact Info) Description 12/19/2024 9:00 AM EDT Office Visit [facility] [address] [place] [address] Josh Garcia, DDS [address] [place] [address] Health Maintenance Due Date Last Done Comments CT Colonography 1979 Colonoscopy 1979 Colorectal Cancer Screening 1979 Dental Prophylaxis 1979 FIT DNA/Cologuard 1979 FIT 1979 FOBT 1979 Lipid Panel 1979 Sigmoidoscopy 1979 Disability Screening 1979 Alcohol/Substance Use Screening 1991 Family Planning (PISQ) 1994 HPV Vaccines (1 - Male 3-dose series) 1994 Hepatitis B Vaccines (1 of 3 - 19+ 3-dose series) 1998 Dental Oral Exam 02/20/2016 08/20/2015 Dental X-Ray: Bitewings 08/20/2016 08/20/2015 Depression Screening 03/15/2023 03/15/2022, 03/15/19 23 SDOH Screening 11/30/2023 11/29/2022 COVID-19 Vaccine ( season) 2024 01/28/2022, 01/29/2021, 07/10/2020, Additional history exists Influenza Vaccine (#1) 2024 Tobacco Screening 06/05/2025 06/05/2024 Dental X-Ray: Full [...] patient's age to complete this topic Meningococcal B Vaccine Aged Out No l onger eligible based on patient's age to complete this topic Meningococcal Vaccine Aged Out No heriberto jolynn eligible based on patient's age to complete this topic Pneumococcal Vaccine: Pediatrics (0 to 5 Years) and At-Risk Patients (6 to 49) Years Aged Out No longer eligible based on patient's age to complete this topic RSV under 20 months Aged Out No longe r eligible based on patient's age to complete this topic Rotavirus Vaccines Aged Out No longer eligible based on patient's age to complete this topic Procedures Procedure Name Priority Date/Time Associated Diagnosis Comments PSA, TOTAL Routine 12/17/2024 1:25 PM EDT CBC Routine 12/17/2024 1:25 PM EDT PANORAMIC RADIOGRAPHIC IMAGE Routine 03/13/2023 [...] Recently Relevant to Health Maintenance Results * CBC (12/17/2024 1:25 PM EDT) White Blood Count 6.6 4.8 - 10.8 X10*3/uL [facility] Red Blood Count 5.07 4.60 - 5.80 X10*6/uL [facility] Hemoglobin 15.2 14.0 - 18.0 g/dl [facility] Hematocrit 44.1 42.0 - 52.0 % [facility] Mean Corpuscular Volume 87.0 80.0 - 98.0 fL [facility] Mean Corpuscular Hemoglobin 30.0 27.0 - 33.0 pg [facility] Mean Corpuscular HGB Conc 34.5 31.0 - 36.0 g/dl [facility] Red Cell Distribution Width 12.3 11.0 - 16.0 % [facility] Platelet Count 203 160 - 400 X10*3/uL [facility] Mean Platelet Volume 10.5 9.4 - 12.4 fL [facility] NRBC Pct Auto 0.0 0.0 - 0.2 /100WBC [facility] NRBC Abs Auto 0.000 0.0 - 0.012 X10*3/uL [facility] 12/17/2024 1:25 PM EDT 12/17/2024 1:25 PM EDT Generic External Data Provider LAB BLOOD ORDERAB LES Final Result Performing Organization Address [facility] Co de Phone Number [facility] [address] [place] [phone] * PSA,Total (12/17/2024 1:25 PM EDT) [facility] Prostate Specific Antigen 0.42 <0.05 - 4.0 ng/mL [facility] Comment:PSA methodology: Adeel Ramires i ChemiluminescentMicroparticle Immunoassay (CMIA) 12/17/2024 1:25 PM EDT 12/17/2024 1:25 PM EDT Generic External Data Provider LAB BLOOD ORDERAB LES Final Result Performing Organization Address [facility] Co de Phone Number [facility] [address] [place] [phone] * HEPATITIS PANEL, ACUTE W/REFLEX TO CONFIRMATION (12/29/2019 11:09 AM EST) Pathologist [facility] HEPATITIS C ANTIBODY NON-REACT SAIRA NON-REACT SAIRA [facility] INDEX 0.01 <1.00 [facility] Comment: HCV antibody was non-reactive. There is no laboratory evidence of HCV infection. In most cases, no further action is required. However, if recent HCV exposure is suspected, a test for HCV RNA (test code 58246) is suggested. For additional information please refer to http://[employer] group/faq/DPM18z5 (This link is being provided for informational/ educational purposes only.) HEPATITIS B SURFACE ANTIGEN NON-REACT SAIRA NON-REACT SAIRA [facility] HEPATITIS B CORE ANTIBODY (IGM) NON-REACT SAIRA NON-REACT SAIRA [facility] HEPATITIS B CORE ANTIBODY (IGM) NON-REACT SAIRA NON-REACT SAIRA [facility] HEPATITIS A IGM NON-REACT SAIRA NON-REACT SAIRA [facility] Comment: For additional information, please refer to http://[employer] group/faq/QVZ485 (This link is being provided for informational/ educational purposes only.) HEPATITIS B CORE ANTIBODY (IGM) NON-REACT SAIRA NON-REACT SAIRA [facility] HEPATITIS A IGM NON-REACT SAIRA NON-REACT SA[facility]A [facility] Comment: For additional information, please refer to http://[employer]/faq/YUI739 (This link is being provided for informational/ educational purposes only.) HEPATITIS C ANTIBODY NON-REACT SAIRA NON-REACT SAIRA [facility] INDEX 0.01 <1.00 [facility] Comment: HCV antibody was non-reactive. There is no laboratory evidence of HCV infection. In most cases, no further action is required. However, if recent HCV exposure is suspected, a test for HCV RNA (test code 40873) is suggested. For additional information please refer to http://[employer]/faq/RFA86f0 (This link is being provided for informational/ educational purposes only.) HEPATITIS C ANTIBODY NON-REACT SAIRA NON-REACT SAIRA [facility] INDEX 0.01 <1.00 [facility] Comment: HCV antibody was non-reactive. There is no laboratory evidence of HCV infection. In most cases, no further action is required. However, if recent HCV exposure is suspected, a test for HCV RNA (test code 57279) is suggested. For additional information please refer to http://[employer]/faq/AHW02p2 (This link is being provided for informational/ educational purposes only.) HEPATITIS B CORE ANTIBODY (IGM) NON-REACT SAIRA NON-REACT SAIRA [facility] HEPATITIS A IGM NON-REACT SAIRA NON-REACT SAIRA [facility] Comment: For additional information, please refer to http://[employer]/faq/ZDD522 (This link is being provided for informational/ educational purposes only.) HEPATITIS B SURFACE ANTIGEN NON-REACT SAIRA NON-REACT SAIRA [facility] HEPATITIS B SURFACE ANTIGEN NON-REACT SAIRA NON-REACT SAIRA [facility] HEPATITIS C ANTIBODY NON-REACT SAIRA NON-REACT SAIRA [facility] INDEX 0.01 <1.00 [facility] Comment: HCV antibody was non-reactive. There is no laboratory evidence of HCV infection. In most cases, no further action is required. However, if recent HCV exposure is suspected, a test for HCV RNA (test code 35709) is suggested. For additional information please refer to http://[employer] group/faq/DUW13l2 (This link is being provided for informational/ educational purposes only.) HEPATITIS A IGM NON-REACT SAIRA NON-REACT SAIRA [facility] Comment: For additional information, please refer to http://[employer] group/faq/RXZ897 (This link is being provided for informational/ educational purposes only.) HEPATITIS B SURFACE ANTIGEN NON-REACT SAIRA NON-REACT SAIRA [facility] 12/29/2019 11:0 9 AM EST us Osman Blake STITCHING MACHINE OPERATOR HISTORICAL/NON ORDERA BLE LABS Final Result [facility] [address] * HIV 1/2 ANTIGEN/ANTIBODY,FOURTH GENERATION W/RFL (12/29/2019 11:09 AM EST) HIV-1/2 ANTIGEN AND ANTIBODIES, 4TH GENERATION W/ REFLEX NON-REACT SAIRA NON-REACT SAIRA [facility] Comment: HIV-1 antigen and HIV-1/HIV-2 antibodies were not detected. There is no laboratory evidence of HIV infection. PLEASE NOTE: This information has been disclosed to you from records whose confidentiality may be protected by state law. If your state requires such protection, then the state law prohibits you from making any further disclosure of the information without the specific written consent of the person to whom it pertains, or as otherwise permitted by law. A general authorization for the release of medical or other information is NOT sufficient for this purpose. For additional information please refer to http://[employer]/faq/OCB856 (This link is being provided for informational/ educational purposes only.) The performance of this assay has not been clinically validated in patients less than 2 years old. HIV-1/2 ANTIGEN AND ANTIBODIES, 4TH GENERATION W/ REFLEX NON-REACT SAIRA NON-REACT SA[facility]A [facility] Comment: HIV-1 antigen and HIV-1/HIV-2 antibodies were not detected. There is no laboratory evidence of HIV infection. PLEASE NOTE: This information has been disclosed to you from records whose confidentiality may be protected by state law. If your state requires such protection, then the state law prohibits you from making any further disclosure of the information without the specific written consent of the person to whom it pertains, or as otherwise permitted by law. A general authorization for the release of medical or other information is NOT sufficient for this purpose. For additional information please refer to http://[employer]Sa[employer].com.iLike/faq/RCE578 (This link is being provided for informational/ educational purposes only.) The performance of this assay has not been clinically validated in patients less than 2 years old. HIV-1/2 ANTIGEN AND ANTIBODIES, 4TH GENERATION W/ REFLEX NON-REACT SAIRA NON-REACT SA[facility]A [facility] Comment: HIV-1 antigen and HIV-1/HIV-2 antibodies were not detected. There is no laboratory evidence of HIV infection. PLEASE NOTE: This information has been disclosed to you from records whose confidentiality may be protected by state law. If your state requires such protection, then the state law prohibits you from making any further disclosure of the information without the specific written consent of the person to whom it pertains, or as otherwise permitted by law. A general authorization for the release of medical or other information is NOT sufficient for this purpose. For additional information please refer to http://[employer]/faq/QDE803 (This link is being provided for informational/ educational purposes only.) The performance of this assay has not been clinically validated in patients less than 2 years old. HIV-1/2 ANTIGEN AND ANTIBODIES, 4TH GENERATION W/ REFLEX NON-REACT SAIRA NON-REACT SAIRA [facility] Comment: HIV-1 antigen and HIV-1/HIV-2 antibodies were not detected. There is no laboratory evidence of HIV infection. PLEASE NOTE: This information has been disclosed to you from records whose confidentiality may be protected by state law. If your state requires such protection, then the state law prohibits you from making any further disclosure of the information without the specific written consent of the person to whom it pertains, or as otherwise permitted by law. A general authorization for the release of medical or other information is NOT sufficient for this purpose. For additional information please refer to http://[employer]/faq/DJR639 (This link is being provided for informational/ educational purposes only.) The performance of this assay has not been clinically validated in patients less than 2 years old. 12/29/2019 11:0 9 AM EST us Osman Blake STITCHING MACHINE OPERATOR LAB BLOOD ORDERABLES Final Result Performing Organization Address City/State/[facility] Co de Phone Number [facility] [address] from Last 3 Months or Most Recently Relevant to Health Maintenance Insurance [facility] STANDARD AETNA PPO DENTAL-[facility] MEDICAID STAND ADULT Care Teams Loading Rack Supervisor Relationship Specialty Start Date End Date Ruthy Vickers FNP [address] [place] [address] PCP - General Family Medicine 11/29/22
== END 2024-12-17 13:16 | disposition home or self-care (01) ==
LOC: HO.LAB 13:15
PROVIDERS: PCP Registered Nurse; Visit Provider Urology
DX: Z12.5 Encounter for screening for malignant neoplasm of prostate (principal); E23.0 Hypopituitarism
CPT/HCPCS: 36415; 84153; 84403; 85027

== ENCOUNTER 2025-01-09 15:10 | Outpatient (AMB) | payer OTHER, MEDICAID, SELFPAY ==
--- OUTSIDE RECORDS SUMMARY | 2025-01-05 13:00 | XMS_ITS | Encounter Summary ---
Author Organization [employer] Address [address] [facility] [address] [place] [address] Care Team Providers Care Supervisor Train Operations Name Role Phone Ruthy Vickers UKE OPERATOR Primary Care Provider [phone] Reason for Visit * Reason Comments Consult Consult #18 and #19 Encounter Details Date Type Department Care Team ([facility] st Contact Info) Description 01/05/2025 1:00 PM EST Office Visit [facility] [address] [place] [address] Adama Hill, DDS [address] [place] [address] Dental caries (Primary Dx) Social History Tobacco Use Types Packs/Day Years Used Date Smoking Tobacco: Never Smokeless Tobacco: Never Alcohol Use Standard Drinks/Week Comments Never 0 [...] Orientation Straight 12/26/2021 10 :29 AM EDT documented as of this encounter Progress Notes * Adama Hill DDS - 01/05/2025 1:00 PM EST Patient is here for a consult # 18 On exam # 18 has mesial and distal decay Distal decay is subg Gingival inflammation around it. No Intra or extra oral swelling Palp-ve, perc-ve, cold test +ve lingering pain on # 18 Probing depths 4 mm on distal On radiograph taoism close to pulp horn Dx: symptomatic irreversible pulptis and SAP # 18 Tx plan: rct # 18 Needs caries control first to evaluate the restorability NV: caries control # 18 documented in this encounter Plan of Treatment Upcoming Encounters Date Type Department Care Team (Late st Contact Info) Description 02/24/2025 9:30 AM EST Office Visit [facility] [address] [place] [address] Kamran Cristobal Scheduled Orders Name Type Priority Associated Diagnoses Orde r Schedule ENDO - CLEAN AND SHAPE Dental Routine 1 Occurrences starting 01/05/2025 29 B 29 B RESIN-BASED COMPOSITE - 1 SURF, POSTERIOR Dental Routine [address] arting 01/05/2025 18 18 ENDODONTIC THERAPY, MOLAR TOOTH Dental Routine [address] arting 01/05/2025 COMPREHENSIVE ORAL EVALUATION - NEW OR ESTABLISHED PATIENT Dental Routine 1 Occurrence s starting 01/05/2025 PROPHYLAXIS - ADULT Dental Routine 1 Occ urrences starting 01/05/2025 INTRAORAL - COMPLETE SERIES OF RADIOGRAPHIC IMAGES Dental Routine [address] arting 01/05/2025 documented as of this encounter Procedures Procedure Name Priority Date/Time Associated Diagnosis Comments LIMITED ORAL EVALUATION - PROBLEM FOCUSED Routine 01/05/2025 1:00 PM EST documented in this encounter Visit Diagnoses Diagnosis Dental caries- Primary Unspecified dental caries documented in this encounter Additional Health Concerns Assessment Noted Time PHQ-9 Depression Total Score: 0 03/15/19 3:23 PM EST documented as of this encounter Care Teams Supervisor Train Operations Relationship Specialty Start Date End Date Ruthy Vickers FNP [address] [place] [phone] PCP - General Family Medicine 11/29/22 documented as of this encounter
--- NOTE | 2025-01-09 15:17 | A.OFFVIS_ITS ---
Intake Visit Reasons: 5M PSA/Testo Intake Note: Patient is present for Lab results Urology Med: Sildenafil, Testosterone Antibiotic Allergy: None Blood Thinner: None 12/17/2024- PSA- 0.42 Total Testo- 554 Vegetable Worker Required: No Allergies No Known Allergies Allergy (Verified 01/09/25 15:18) HPI Comments Details: Marvin is a pleasant male. He is a patient of Dr. Leavitt. 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 with history of probe hormone an anabolic steroid use Off supplementation in 2016 was found to have hypogonadotropic hypogonadism Previously on testosterone Currently uses testosterone supinate which he self administers Gradually reducing dosage to 100 mg weekly subcutaneous Injection - Sunday Laboratory - Sunday Labs: 11/17 877 0.3, 05/18 T 183 50 0.2 (Sun), 11/18 132 (Sun), 05/19 T 740 0.4, 11/19 T 491 0.44, 07/20 640 0.5, 12/20 550 0.4 PFSH Medical History Vitamin D deficiency HTN (hypertension) Hypogonadotropic hypogonadism Surgical History Hx of colonoscopy No pertinent past surgical history Family History Father Heart disease Mother Cancer Social History Household Members: Spouse and Children Alcohol intake: current Alcohol intake frequency: holidays/special occasions only Patient Tobacco Use Status: Never used Tobacco Current occupational status: employed 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 Review of Systems Const Denies chills and Denies fever(s) Card Reports no additional complaints and Denies syncope Resp Denies cough GI Denies abdominal pain and Denies heartburn Reports as per HPI and Denies change in libido Neuro Denies syncope Psych Denies change in libido Endo Denies change in libido Physical Exam Const General: cooperative, healthy appearing, comfortable and no acute distress Orientation/consciousness: patient oriented x3 HEENT Face and sinus: Yes normal facial exam Mouth: moist mucous membranes Neck Neck: Yes normal visual inspection, Yes full ROM and Yes trachea midline Chest Chest palpation & inspection: normal inspection of the chest Resp Effort & Inspection: normal respiratory effort, able to speak in complete sentences and no respiratory distress GI Inspection: Yes normal to inspection Back/Spine/Pelvis Cervical Spine: normal cervical lordosis Thoracic/Lumbar Spine: thoracic and lumbar spine normal to inspection Skin General skin exam: no rashes or lesions noted Neuro General: patient oriented x3, gait normal, tone normal and moves all extremities Extrem General: Yes normal to inspection and Yes capillary refill normal Assessment & Plan Assessment & Plan (1) Erectile dysfunction due to arterial insufficiency: Code(s): N52.01 - Erectile dysfunction due to arterial insufficiency Category: Medical (2) Hypogonadotropic hypogonadism: Code(s): E23.0 - Hypopituitarism Category: Medical Plan Six-month follow-up lab work Orders: Orders Testosterone, Total 5 Months E23.0 - Hypopituitarism Prostate Specific Antigen 5 Months E23.0 - Hypopituitarism Hematocrit 5 Months E23.0 - Hypopituitarism Medications: New tadalafil 5 mg PO DAILY 90 tabs 1RF sexual activity 90 days N52.01 - Erectile dysfunction due to arterial insufficiency Refilled testosterone cypionate 100 mg (0.5 mL) IM QWEEK 4 mL 5RF 28 days E23.0 - Hypopituitarism Patient Instructions: This note is constructed using voice recognition software. While every effort has been made to ensure accuracy agricultural service technician errors may have been included. Imaging studies, laboratory and physical exam results were discussed and reviewed in detail. No major barriers to patient understanding were identified. An opportunity to ask questions regarding the treatment plan was provided. All questions were answered. The patient expressed understanding and agreement with the above treatment plan. The patient is aware they should contact our office by phone for worsening of their current condition or the appearance of new urologic symptoms. Compliance is encouraged with any medications and followup testing that is ordered. It is a privilege to participate in the urologic care of your patient. If you have any questions or concerns regarding treatment for the above conditions, or other urologic issues, please do not hesitate to contact me. The office telephone contact is [phone]. Sincerely, Dr Marciano Soliman MD, MIC[facility] - Urology Compassionate Specialist Care for the Genitourinary System Coding Level of Care Code Est Pt Level 3 (16326) Complex EM visit Add On G2211 Diagnoses Erectile dysfunction due to arterial insufficiency N52.01 Hypogonadotropic hypogonadism E23.0
--- OUTSIDE RECORDS SUMMARY | 2025-01-09 23:37 | XMS_ITS | Clinical Summary ---
Author Organization [facility] Address [address] [place] [address] [address] [place] [address] Care Team Providers Care [facility] Name Role Phone Ruthy Vickers [facility] Primary Care Provider [phone] Allergies No known active allergies Medications tadalafil [...] Date Pain, dental 06/05/2024 Dental abscess 03/13/2023 Dental caries into pulp 03/13/2023 Vitamin D deficiency 11/28/2022 Hypogonadotropic hypogonadism 11/28/2022 HTN (hypertension) 11/28/2022 Family history of colon cancer 11/28/2022 Closed fracture of 5th metacarpal 11/28/2022 Elevated blood-pressure read ing without diagnosis of hypertension 06/08/2016 Decreased testosterone level 05/31/2015 Encounters Date Type Department Care Team Description 01/05/2025 1:00 PM EST Office Visit [facility] [address] [place] [address] Adama Hill DDS Dental caries (Primary Dx) 12/19/2024 9:00 AM EDT Office Visit [facility] [address] [place] [address] Josh Garcia DDS Dental caries into pulp (Primary Dx); Dental root caries from Last 3 Months Immunizations Immunization Administration Dates Next Due Tdap [...] t he electric, gas, oil or water Over 40 Females threatened to shut off services in your [...] Sign Reading Time Taken Comments Blood Pressure 132/70 12/19/2024 9:00 AM EDT Pulse 68 12/19/2024 9:00 AM EDT Temperature 36.5 C (97.7 F) 06/07/2023 [...] Description 02/24/2025 9:30 AM EST Office Visit [facility] [address] [place] [address] Kamran Cristobal Health Maintenance Due Date Last Done Comments [...] exists Influenza Vaccine (#1) 2024 Tobacco Screening 01/05/2026 01/05/2025 Dental X-Ray: Full Mouth 03/14/2026 03/13/2023, 07/28 [...] PROBLEM FOCUSED Routine 01/05/2025 1:00 PM EST NO CHARGE VISIT Routine 12/19/2024 9:00 AM EDT 17 EXTRACTION Routine 12/19/2024 12:00 AM EDT TESTOSTERONE, TOTAL, MALES (ADULT), IA Routine 12/17/2024 1:25 PM EDT PSA, TOTAL Routine 12/17/2024 1:25 PM EDT [...] Blood Count 6.6 4.8 - 10.8 X10*3/uL [facility] Red Blood Count 5.07 4.60 - 5.80 X10*6/uL [facility] Hemoglobin 15.2 14.0 - 18.0 g/dl [facility] Hematocrit 44.1 42.0 - 52.0 % [facility] Mean Corpuscular Volume 87.0 80.0 - 98.0 fL [facility] Mean Corpuscular Hemoglobin 30.0 27.0 - 33.0 pg [facility] Mean Corpuscular HGB Conc 34.5 31.0 - 36.0 g/dl [facility] Red Cell Distribution Width 12.3 11.0 - 16.0 % [facility] Platelet Count 203 160 - 400 X10*3/uL [facility] Mean Platelet Volume 10.5 9.4 - 12.4 fL [facility] NRBC Pct Auto 0.0 0.0 - 0.2 /100WBC [facility] NRBC Abs Auto 0.000 0.0 - 0.012 X10*3/uL [facility] 12/17/2024 1:25 PM EDT 12/17/2024 1:25 PM EDT us Generic External Data Provider LAB BLOOD ORDERAB LES Final Result [facility] [address] [place] [address] [phone] * Testosterone, Total, males (Adult), IA (12/17/2024 1:25 PM EDT) Testosterone, Total 791 995 - 1100 ng/dL [facility] Comment:For additional infor jackie, please refer [email or web address].Windeln.de/faq/YxlnlImrkjiqxwnapPAQZTGGQE314(This link is being provided for informational/educational purposes only.)This test was developed and its analytical performancecharacteristics have been determined by [employer] [place], [place]. It hasnot been cleared or approved by the U.S. Food and DrugAdministration. This assay has been validated pursuantto the CLIA regulations and is used for clinicalpurposes.THIS TEST WAS PERFORMED AT:Scroll.in/[facility] [place] [address]FVNCWASOSMAN MAYFIELD MD,PHD 12/17/2024 1:25 PM EDT 12/17/2024 1:25 PM EDT Generic External Data Provider LAB BLOOD ORDERAB LES Final Result Performing Organization Address City/[facility]/ZIP Co de Phone Number [facility] [address] [place] [phone] * PSA,Total (12/17/2024 1:25 PM EDT) [facility] Prostate Specific Antigen 0.42 <0.05 - 4.0 ng/mL [facility] Comment:PSA methodology: Abb cyndi Alinity i ChemiluminescentMicroparticle Immunoassay (CMIA) 12/17/2024 1:25 PM EDT 12/17/2024 1:25 PM EDT us Generic External Data Provider LAB BLOOD ORDERAB LES Final Result Performing Organization Address [facility]/ZIP Co de Phone Number [facility] [address] [place] [phone] * HEPATITIS PANEL, ACUTE W/REFLEX TO CONFIRMATION (12/29/2019 11:09 AM EST) [facility] HEPATITIS C ANTIBODY NON-REACT SAIRA NON-REACT [facility] INDEX 0.01 <1.00 [facility] Comment: HCV antibody was non-reactive. There is no laboratory evidence of HCV infection. In most cases, no further action is required. However, if recent HCV exposure is suspected, a test for HCV RNA (test code 99516) is suggested. For additional information please refer to http://Hipbone/faq/WMW14l4 (This link is being provided for informational/ educational purposes only.) HEPATITIS B SURFACE ANTIGEN NON-REACT SAIRA NON-REACT [facility] HEPATITIS B CORE ANTIBODY (IGM) NON-REACT SAIRA NON-REACT [facility] HEPATITIS B CORE ANTIBODY (IGM) NON-REACT SAIRA NON-REACT [facility] HEPATITIS A IGM NON-REACT SAIRA NON-REACT [facility] Comment: For additional information, please refer to http://Hipbone/faq/RMI728 (This link is being provided for informational/ educational purposes only.) HEPATITIS B CORE ANTIBODY (IGM) NON-REACT SAIRA NON-REACT [facility] HEPATITIS A IGM NON-REACT SAIRA NON-REACT [facility] Comment: For additional information, please refer to http://Hipbone/faq/TMP178 (This link is being provided for informational/ educational purposes only.) HEPATITIS C ANTIBODY NON-REACT SAIRA NON-REACT [facility] INDEX 0.01 <1.00 [facility] Comment: HCV antibody was non-reactive. There is no laboratory evidence of HCV infection. In most cases, no further action is required. However, if recent HCV exposure is suspected, a test for HCV RNA (test code 17569) is suggested. For additional information please refer to http://Hipbone/faq/QUK71i9 (This link is being provided for informational/ educational purposes only.) HEPATITIS C ANTIBODY NON-REACT SAIRA NON-REACT SA[facility] INDEX 0.01 <1.00 [facility] Comment: HCV antibody was non-reactive. There is no laboratory evidence of HCV infection. In most cases, no further action is required. However, if recent HCV exposure is suspected, a test for HCV RNA (test code 66880) is suggested. For additional information please refer to http://NewsHunt.Syndiant/faq/MIA91p1 (This link is being provided for informational/ educational purposes only.) HEPATITIS B CORE ANTIBODY (IGM) NON-REACT SAIRA NON-REACT SAIRA [facility] HEPATITIS A IGM NON-REACT SAIRA NON-REACT SAIRA [facility] Comment: For additional information, please refer to http://NewsHunt.Syndiant/faq/DXL589 (This link is being provided for informational/ educational purposes only.) HEPATITIS B SURFACE ANTIGEN NON-REACT SAIRA NON-REACT [facility] HEPATITIS B SURFACE ANTIGEN NON-REACT SAIRA NON-REACT SAIRA [facility] HEPATITIS C ANTIBODY NON-REACT SAIRA NON-REACT SAIRA [facility] INDEX 0.01 <1.00 [facility] Comment: HCV antibody was non-reactive. There is no laboratory evidence of HCV infection. In most cases, no further action is required. However, if recent HCV exposure is suspected, a test for HCV RNA (test code 88094) is suggested. For additional information please refer to http://Hipbone/faq/ZUC02p2 (This link is being provided for informational/ educational purposes only.) HEPATITIS A IGM NON-REACT SAIRA NON-REACT SAIRA [facility] Comment: For additional information, please refer to http://Hipbone/faq/PUK449 (This link is being provided for informational/ educational purposes only.) HEPATITIS B SURFACE ANTIGEN NON-REACT SAIRA NON-REACT SAIRA [facility] 12/29/2019 11:0 9 AM EST us Osman Blake GROUP UNDERWRITER HISTORICAL/NON ORDERA BLE LABS Final Result [facility] [address] * HIV 1/2 ANTIGEN/ANTIBODY,FOURTH GENERATION W/RFL (12/29/2019 11:09 AM EST) HIV-1/2 ANTIGEN AND ANTIBODIES, 4TH GENERATION W/ REFLEX NON-REACT SAIRA NON-REACT SAIRA [facility] Comment: HIV-1 antigen and HIV-1/HIV-2 [...] purpose. For additional information please refer to http://NewsHunt.Syndiant/faq/QWG232 (This link is being provided for informational/ educational purposes only.) The performance of this assay has not been clinically validated in patients less than 2 years old. HIV-1/2 ANTIGEN AND ANTIBODIES, 4TH GENERATION W/ REFLEX NON-REACT SAIRA NON-REACT SAIRA [facility] Comment: HIV-1 antigen and HIV-1/HIV-2 [...] purpose. For additional information please refer to http://[email or web address].de/faq/VZW507 (This link is being provided for informational/ educational purposes only.) The performance of this assay has not been clinically validated in patients less than 2 years old. HIV-1/2 ANTIGEN AND ANTIBODIES, 4TH GENERATION W/ REFLEX NON-REACT SAIRA NON-REACT SAIRA [facility] Comment: HIV-1 antigen and HIV-1/HIV-2 [...] purpose. For additional information please refer to http://NewsHunt.Syndiant/faq/FBY879 (This link is being provided for informational/ educational purposes only.) The performance of this assay has not been clinically validated in patients less than 2 years old. HIV-1/2 ANTIGEN AND ANTIBODIES, 4TH GENERATION W/ REFLEX NON-REACT SAIRA NON-REACT SAIRA [facility] Comment: HIV-1 antigen and HIV-1/HIV-2 [...] purpose. For additional information please refer to http://NewsHunt.Syndiant/faq/BMA504 (This link is being provided for informational/ educational purposes only.) The performance of this assay has not been clinically validated in patients less than 2 years old. 12/29/2019 11:0 9 AM EST us Osman Blake GROUP UNDERWRITER LAB BLOOD ORDERABLES Final Result Performing Organization Address City/State/[facility] Co ar Phone Number [facility] [address] from Last 3 Months or Most Recently Relevant to Health Maintenance Insurance [facility] STANDARD AETNA PPO D[facility] MEDICAID STAND ADULT Care Teams [facility] Relationship Specialty Start Date End Date Ruthy Vickers FNP [address] [place] [phone] PCP - General Family Medicine 11/29/22
== END 2025-01-09 15:37 | disposition home or self-care (01) ==
LOC: HO.HUSH 15:10
PROVIDERS: PCP Registered Nurse; Visit Provider Urology
DX: N52.01 Erectile dysfunction due to arterial insufficiency (principal); E23.0 Hypopituitarism
CPT/HCPCS: 99213; G2211